=== PATIENT | male | born 1990 | race Caucasian/White ===

== ENCOUNTER 2018-09-08 11:06 | Day surgery (SDC) | payer MEDICAID ==
[~2018-09-08 11:06] MED LIST: Acetaminophen/oxyCODONE 325-5 MG Tab PO PRN; Bupivacaine 0.5% 10 ML SDV ONE; Lactated Ringers 1,000 ML IV SCH; ceFAZolin 2 GM in Premix Bag 1 BAG IV SCH
[2018-09-08] MEDS ORDERED: Midazolam 1 MG/ML 2 ML SDV ONE (11:36)
[2018-09-08] MEDS ORDERED: Ondansetron 4 MG/2 ML SDV ONE (11:36)
[2018-09-08] MEDS ORDERED: fentaNYL 100 MCG/2 ML SDV ONE ×2 (11:36→13:19)
[2018-09-08] MEDS ORDERED: Propofol 200 MG/20 ML SDV ONE (11:36)
[2018-09-08] MEDS ORDERED: Lidocaine 2% 5 ML SDV ONE (11:37)
--- NOTE | 2018-09-08 11:47 | PCM.PREANE ---
Preanesthetic Assessment - Anesthesia/Transfusion/Family Hx Anesthesia History: No Prior Anesthesia Family History of Anesthesia Reaction: No Transfusion History: No Prior Transfusion(s) - Review of Systems General: No Symptoms Pulmonary: No Symptoms Cardiovascular: No Symptoms Gastrointestinal: No Symptoms Neurological: No Symptoms Other: Reports: None - Physical Assessment NPO Status Date: 09/07/18 Height: 1.88 m Weight: 95.254 kg ASA Class: 2 Mental Status: Alert & Oriented x3 Airway Class: Mallampati = 1 Dentition: Reports: Normal Dentition ROM/Head Extension: Full Lungs: Clear to Auscultation, Normal Respiratory Effort Cardiovascular: Regular Rate, Regular Rhythm - Allergies Allergies/Adverse Reactions: Allergies Allergy/AdvReac Type Severity Reaction Status Date / Time No Known Allergies Allergy Verified 09/05/18 16:58 - Blood Blood Available: No - Anesthesia Plan Pre-Op Medication Ordered: None - Acknowledgements Anesthesia Type Planned: General Anesthesia Pt an Appropriate Candidate for the Planned Anesthesia: Yes Alternatives and Risks of Anesthesia Discussed w Pt/Guardian: Yes Pt/Guardian Understands and Agrees with Anesthesia Plan: Yes Additional Comments: PMH: smoker PLAN: GA-LMA PreAnesthesia Questionnaire HEENT History: Reports: None Cardiovascular History: Reports: None Respiratory History: Reports: None Gastrointestinal History: Reports: Other (See Below) Other Gastrointestinal History: occasional heartburn Genitourinary History: Reports: None Musculoskeletal History: Reports: Fracture Other Musculoskeletal History: hx of fx clavicle and hand Neurological History: Reports: None Psychiatric History: Reports: Anxiety, Depression Endocrine/Metabolic History: Reports: None Hematologic History: Reports: None Immunologic History: Reports: None Oncologic (Cancer) History: Reports: None Dermatologic History: Reports: None - Past Surgical History Head Surgeries/Procedures: Reports: None - SUBSTANCE USE Smoking Status *Q: Current Every Day Smoker Tobacco Use Within Last Twelve Months: Cigarettes Recreational Drug Use History: No - HOME MEDS Home Medications: Home Meds . [No Known Home Meds] 09/05/18 [History] - CURRENT (IN HOUSE) MEDS Current Meds: Current Medications Cefazolin Sodium/Dextrose 2 gm (/ Premix) 50 mls @ 100 mls/hr IV ONCALL [facility] Lactated Ringer's (Ringers, Lactated) 1,000 mls @ 100 mls/hr IV ASDIRECTED [facility] Last Admin: 09/08/18 11:42 Dose: 100 mls/hr Oxycodone/Acetaminophen (Percocet 325-5 Mg) 1 - 2 tab PO Q4H PRN PRN Reason: Pain Discontinued Medications Bupivacaine HCl (Sensorcaine-Mpf 0.5%) Confirm Administered Dose 10 ml .ROUTE .STK-MED ONE Stop: 09/08/18 07:43 Fentanyl (Sublimaze) Confirm Administered Dose 100 mcg .ROUTE .STK-MED ONE Stop: 09/08/18 11:37 Lidocaine (Xylocaine-Mpf 2%) Confirm Administered Dose 5 ml .ROUTE .STK-MED ONE Stop: 09/08/18 11:38 Midazolam HCl (Versed 1 Mg/Ml) Confirm Administered Dose 2 mg .ROUTE .STK-MED ONE Stop: 09/08/18 11:37 Ondansetron HCl (Zofran) Confirm Administered Dose 4 mg .ROUTE .STK-MED ONE Stop: 09/08/18 11:37 Propofol (Diprivan 20 Ml) Confirm Administered Dose 200 mg .ROUTE .STK-MED ONE Stop: 09/08/18 11:37
[2018-09-08] MEDS ORDERED: ceFAZolin/Dextrose,Iso-Osmotic 2 GM/50 ML Duplex Bag IV ONE (12:46)
[2018-09-08] MEDS ORDERED: Ketorolac 30 MG/ML SDV ONE ×2 (13:11→14:35)
[2018-09-08] MEDS ORDERED: HYDROmorphone 2 MG/ML Syringe ONE ×2 (13:17→14:22)
[2018-09-08] MEDS ORDERED: Ondansetron 4 MG/2 ML SDV IVPUSH PRN (13:21)
[2018-09-08] MEDS: fentaNYL 100 MCG/2 ML SDV IVPUSH PRN ×2 (14:14→14:28)
--- NOTE | 2018-09-08 14:17 | PCM.OPNOTE ---
- General Post-Op/Procedure Note Date of Surgery/Procedure: 09/08/18 Operative Procedure(s): ORIF R bimalleolar ankle fracture, lateral malleolus only Post-Op Diagnosis: R bimalleolar ankle fracture (lateral and posteior malleolus) Anesthesia Technique: General LMA Primary Surgeon: Tatyana Briones Rv Detailer: Cynthia Ocampo in mLs: 10 Condition: Good Free Text/Narrative:: tt=25 min #[id number]
[2018-09-08] MEDS: HYDROmorphone 2 MG/ML SDV IVPUSH PRN ×4 (14:26→14:46)
[2018-09-08] MEDS ORDERED: HYDROmorphone 2 MG/ML SDV IVPUSH PRN (14:47)
[2018-09-08] MEDS ORDERED: diphenhydrAMINE 50 MG/ML SDV ONE (14:49)
[2018-09-08] MEDS ORDERED: diphenhydrAMINE 50 MG/ML SDV IVPUSH ONE (14:55)
--- NOTE | 2018-09-08 15:03 | PCM.POSTAN ---
POST ANESTHESIA ASSESSMENT - MENTAL STATUS Mental Status: Alert, Oriented - RESPIRATORY Respiratory Status: Respiratory Rate WNL - CARDIOVASCULAR CV Status: Pulse Rate WNL - GASTROINTESTINAL GI Status: No Symptoms - POST OP HYDRATION Hydration Status: Adequate & Stable - OBSERVATIONS Free Text/Narrative:: The patient tolerated the procedure well. There were no apparent anesthetic complications at this time. Discharge per criteria.
[2018-09-08] MEDS ORDERED: oxyCODONE 5 MG Tab PO ONE (15:17)
[2018-09-08] MEDS ORDERED: oxyCODONE ER 10 MG TAB.ER ONE (15:24)
--- NOTE | 2018-09-08 16:14 | PCM48HPAN ---
Post Anesthesia Note - EVALUATION WITHIN 48HRS OF ANESTHETIC Vital Signs in Normal Range: Yes Patient Participated in Evaluation: Yes Respiratory Function Stable: Yes Airway Patent: Yes Cardiovascular Function Stable: Yes Hydration Status Stable: Yes Pain Control Satisfactory: Yes Nausea and Vomiting Control Satisfactory: Yes Mental Status Recovered: Yes Resp Rate: 14 - COMMENTS/OBSERVATIONS Free Text/Narrative:: The patient appears comfortable, and has no questions at this time. Discharge to home per criteria.
--- NOTE | 2018-09-08 17:13 | CR ---
EXAMINATION: Right ankle HISTORY: Fracture COMPARISON: 09/05/2018 TECHNIQUE: 6 views FINDINGS/IMPRESSION: Operative control films demonstrate screw and plate fixation of a distal fibular fracture.
--- NOTE | 2018-09-08 17:18 | OR ---
SURGEON: Tatyana Briones MD DATE OF PROCEDURE: 09/08/2018 PREOPERATIVE DIAGNOSIS: Right distal fibula fracture. POSTOPERATIVE DIAGNOSIS: Right bimalleolar ankle fracture, lateral and posterior malleolus. PROCEDURE: Open reduction and internal fixation, right bimalleolar ankle fracture, lateral malleolus only. PARADI TENDER: Cynthia Ocampo PA-C ANESTHESIA: General. ESTIMATED BLOOD LOSS: 5 mL. TOURNIQUET TIME: 25 minutes. COMPLICATIONS: None. DVT PROPHYLAXIS: PAS boot to the nonoperative leg. IMPLANTS USED: Votaw 8 hole 1/3rd semitubular plate with combination of 3.5 mm cortical and 4.0 mm cancellous screws. BRIEF HISTORY: Gilberto is a 28-year-old male who slipped on the ice, injuring his right ankle. X-rays in clinic did show a Manuel B fracture of the distal fibula. A gravity stress view did show widening of the ankle mortise, consistent with an unstable fracture. Due to his lack of response to conservative treatment, I did recommend surgical intervention. The risks and goals of the procedure were discussed with the patient and were documented preoperatively. He agreed to proceed. DESCRIPTION OF PROCEDURE: The patient was properly identified and brought to the operating room. He was transferred from the OR cart and placed on the operating table in a supine position. General anesthesia was administered. After adequate anesthesia was obtained, a well-padded tourniquet was applied to the right lower extremity. The right lower extremity was then prepped in standard fashion using ChloraPrep solution. It was then sterilely draped. A time-out was performed to ensure correct site and procedure. Preoperative antibiotics were given. The surgical site had been marked preoperatively. An Esmarch was used to exsanguinate the right lower extremity and then the tourniquet was inflated to 250 mmHg. An incision was made over the lateral aspect of the ankle. Subcutaneous tissues were incised. Care was taken to look for the superficial peroneal nerve and this was not encountered. The fracture was identified. A periosteal elevator was used to clear the soft tissues surrounding the fracture. This fracture was then opened and copiously irrigated with saline solution to remove the fracture hematoma. A bone reduction clamp was then used to reduce the fracture. A bone reduction clamp was kept in place for provisional fixation. A 3.5-mm cortical screw was then placed in standard lag fashion in an interfragmentary manner. This provided good fixation of the fracture and the clamp was removed. I elected to proceed with an 8-hole plate as the posterior spike from the distal fragment did extend proximally. The 8-hole plate was contoured to the bone. 3.5 mm screws were used proximal to the fracture and 4.0 mm cancellous screws were used in the distal fragment. At the completion of hardware insertion, C- arm imaging confirmed reduction of the ankle mortise. Fibular length was restored. External rotation stress view along with a lateral pull using live fluoroscopy showed no widening of the syndesmosis. The lateral view did show good reduction of the fracture as well. It was noted on the lateral view that there was a small chip fracture off the posterior malleolus, consistent with a bimalleolar ankle fracture. This involved a very small portion of the joint surface and overall alignment was acceptable. I elected to leave it in place. The wound was then copiously irrigated with saline solution. The deep tissues were closed with 0 Vicryl. Subcutaneous tissues were closed with 3-0 Monocryl and the skin was closed with willie. The tourniquet was deflated prior to wound closure and no significant bleeding was noted. Xeroform gauze was placed over the wound and a bulky dressing was applied. He was placed in a well-padded posterior splint with medial and lateral stabilizing slabs. He was awakened from his anesthetic and transferred back to the operating room cart. He was brought to recovery room in stable condition. All needle and sponge counts were correct. FRANCIS / KEVIN /[id number]
== END 2018-09-08 16:30 | disposition home or self-care (01) ==
LOC: MW.SDS 11:06
PROVIDERS: ATTEND Orthopaedic Surgery
DX: S82.841A Displaced bimalleolar fracture of right lower leg, initial encounter for closed fracture (principal); F17.210 Nicotine dependence, cigarettes, uncomplicated; W00.0XXA Fall on same level due to ice and snow, initial encounter; Y93.29 Activity, other involving ice and snow
CPT/HCPCS: 27814; 76000; A9270; J0131; J0690; J1170; J1885; J2250; J2405; J2704; J3010; J7120; C1713; J3490